=== PATIENT | male | born 1965 ===

== ENCOUNTER 2019-08-14 11:20 | Observation (INO) ==
[2019-08-14] MEDS ORDERED: Ondansetron 4 MG/2 ML VIAL IVP ONE (11:28)
[2019-08-14 11:46] LABS: Basophils % 0.7 %; Eosinophils # 0.2 K/mcL (0.0-0.6); Eosinophils % 3.7 %; Hematocrit 45.9 % (37.5-50.1); Hemoglobin 15.5 g/dL (12.9-16.9); Immature Granulocytes % 0.2 % (0-4); Lymphocytes # 1.3 K/mcL (0.6-4.6); Lymphocytes % 24.4 %; Mean Corpuscular HGB Conc 33.8 g/dL (31.6-35.5); Mean Corpuscular Hemoglobin 27.7 pg (28.0-33.3); Mean Corpuscular Volume 82.1 fL (83.0-100.0); Mean Platelet Volume 8.9 fL (9.4-12.4); Monocytes # 0.6 K/mcL (0.0-1.3); Monocytes % 10.8 %; Neutrophils # 3.3 K/mcL (1.6-8.9); Platelet Count 248 K/mcL (140-400); Red Blood Count 5.59 M/mcL (4.19-5.50); Red Cell Distribution Width 12.9 % (11.5-14.5); Segmented Neutrophils % 60.2 %; White Blood Count 5.5 K/mcL (4.3-11.1)
[2019-08-14 11:52] LABS: Bilirubin,Urine Negative (Negative); Blood,Urine Negative (Negative); Clarity,Urine Clear (Clear); Color,Urine Yellow (Yellow); Glucose,Urine (UA) Normal (Normal); Ketones,Urine Negative (Negative); Leukocyte Esterase,Urine Negative (Negative); Nitrite,Urine Negative (Negative); Protein,Urine Negative (Neg-Trace); Specific Gravity,Urine 1.024 (1.010-1.025); Urobilinogen,Urine Normal (Normal)
[2019-08-14] MEDS ORDERED: Isovue-370 500 ML BOTTLE IVP ONE ×2 (11:52→13:34)
[2019-08-14] MEDS ORDERED: niCARdipine 20 MG in 0.9 % Sodium Chloride 192 ML IVC SCH (12:30)
[2019-08-14] MEDS ORDERED: 0.9 % Sodium Chloride 2,000 ML ONE (12:32)
[2019-08-14] MEDS ORDERED: niCARdipine 40 MG/200 ML MLS IVC SCH (12:33)
[2019-08-14] MEDS ORDERED: 0.9 % Sodium Chloride 500 ML ONE (12:33)
[2019-08-14] MEDS ORDERED: *HR* LORazepam 2 MG/ML VIAL IVP ONE (12:34)
[2019-08-14 12:36] LABS: Alanine Aminotransferase 17 Units/L (7-52); Albumin 4.5 g/dL (3.5-5.7); Albumin/Globulin Ratio 1.7 (1.1-2.2); Alkaline Phosphatase 48 Units/L (34-104); Amylase 45 Units/L (29-103); Aspartate Amino Transferase 19 Units/L (13-39); BUN/Creatinine Ratio 27 (6-26); Bilirubin,Direct 0.1 mg/dL (0.0-0.2); Bilirubin,Indirect 0.4 mg/dL (0.0-1.0); Bilirubin,Total 0.5 mg/dL (0.3-1.0); Blood Urea Nitrogen 23 mg/dL (6-20); Calcium 9.9 mg/dL (8.6-10.3); Carbon Dioxide 26 mEq/L (23-29); Chloride 105 mEq/L (98-107); Globulin 2.7 g/dL (2.4-3.5); Glucose 97 mg/dL (70-105); Lipase 11 Units/L (11-82); Osmolality,Calculated 294 (280-300); Potassium 3.6 mEq/L (3.5-5.1); Sodium 140 mEq/L (136-145); Total Protein 7.2 g/dL (6.4-8.9); eGFR For African Americans > 60 (> 60); eGFR For Non-African Americans > 60 (> 60)
[2019-08-14 12:37] LABS: Troponin I < 0.03 ng/mL (< 0.04)
[2019-08-14] MEDS ORDERED: niCARdipine 40 MG/200 ML MLS IVC ONE (12:42)
[2019-08-14] MEDS ORDERED: 0.9 % Sodium Chloride 1,000 ML IVC ONE (13:34)
[2019-08-14] MEDS ORDERED: Naloxone 0.4 MG/ML INJ IVP PRN (17:26)
[2019-08-14] MEDS ORDERED: Ondansetron ODT 4 MG TAB.RAPDIS SL PRN (17:26)
[2019-08-14 19:23] LABS: C-Reactive Protein < 5 mg/L (Less than 10); Troponin I < 0.03 ng/mL (< 0.04)
[2019-08-14] MEDS: 0.9 % Sodium Chloride 1,000 ML IVC SCH (20:08)
[2019-08-14 22:30] LABS: Adenovirus Not Detected (Not Detect); Bordetella Pertussis Not Detected (Not Detect); Chlamydophila pneumoniae Not Detected (Not Detect); Coronavirus 229E Not Detected (Not Detect); Coronavirus HKU1 Not Detected (Not Detect); Coronavirus NL63 Not Detected (Not Detect); Coronavirus OC43 Not Detected (Not Detect); Human Metapneumovirus Not Detected (Not Detect); Human Rhinovirus/Enterovirus Not Detected (Not Detect); Influenza A Subtype 2009 H1 Not Detected (Not Detect); Influenza B Not Detected (Not Detect); Mycoplasma pneumoniae Not Detected (Not Detect); Parainfluenza Virus 1 Not Detected (Not Detect); Parainfluenza Virus 2 Not Detected (Not Detect); Parainfluenza Virus 3 Not Detected (Not Detect); Parainfluenza Virus 4 Not Detected (Not Detect); Respiratory Syncytial Virus Not Detected (Not Detect)
[2019-08-15] MEDS: 0.9 % Sodium Chloride 1,000 ML IVC SCH (04:19)
[2019-08-15 05:42] LABS: Hematocrit 42.5 % (37.5-50.1); Mean Corpuscular HGB Conc 32.9 g/dL (31.6-35.5); Mean Corpuscular Hemoglobin 27.7 pg (28.0-33.3); Mean Corpuscular Volume 84.2 fL (83.0-100.0); Mean Platelet Volume 9.2 fL (9.4-12.4); Platelet Count 249 K/mcL (140-400); Red Blood Count 5.05 M/mcL (4.19-5.50); Red Cell Distribution Width 13.2 % (11.5-14.5); White Blood Count 6.6 K/mcL (4.3-11.1)
[2019-08-15 06:03] LABS: BUN/Creatinine Ratio 20 (6-26); Blood Urea Nitrogen 18 mg/dL (6-20); Calcium 8.6 mg/dL (8.6-10.3); Carbon Dioxide 26 mEq/L (23-29); Chloride 107 mEq/L (98-107); Glucose 107 mg/dL (70-105); Osmolality,Calculated 290 (280-300); Potassium 3.7 mEq/L (3.5-5.1); Sodium 139 mEq/L (136-145); eGFR For African Americans > 60 (> 60); eGFR For Non-African Americans > 60 (> 60)
[2019-08-15] MEDS ORDERED: Acetaminophen 325 MG TABLET PO PRN (08:03)
[2019-08-15] MEDS ORDERED: hydroCHLOROthiazide 25 MG TABLET PO SCH (09:00)
[2019-08-15 12:01] VITALS: BP 155/92
== END 2019-08-15 13:05 | disposition home or self-care (01) ==
LOC: EMEROOARM 11:20 → 3BNU 11:20 → SUATTDRO 18:31 → 3BNU 18:55
PROVIDERS: ADMIT Internal Medicine; ATTEND Student in an Organized Health Care Education/Training Program